=== PATIENT | male | born 1955 | race Caucasian/White ===

== ENCOUNTER 2016-12-24 08:56 | Emergency (ER) | payer OTHER ==
[2016-12-24 09:01] VITALS: BP 126/76; PULSE 96; TEMP 98.3; BMI 24.3
--- NOTE | 2016-12-24 09:17 | PDOC ---
History of Present Illness - General Chief Complaint: Cold Symptoms Stated Complaint: FEVER [id number] Time Seen by Provider: 12/24/16 09:17 - History of Present Illness Initial Comments: 12/24/16 09:41 Chief complaint: Fever and lethargy History of present illness: Patient complains of fevers, primarily at night, up to 102, accompanied by sweats. He also feels lethargic, with lack of energy and decreased appetite. This began approximately one week ago in [place], where he lives. Soon after he traveled here for work. 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 His symptoms have persisted. He was seen at an urgent care center on Thursday, blood work and x-rays of the chest were performed, which were negative. He was begun empirically on doxycycline, which she has been taking since then without relief Review of systems: He denies history of Lyme disease, rash, or tick bite. Denies headache, URI symptoms, sore throat, cough, chest pain, shortness of breath, abdominal pain, nausea, vomiting, diarrhea, visual or focal neurologic symptoms, unsteadiness of gait, lightheadedness, dizziness, vertigo, dysuria, frequency, urgency, hesitancy, hematuria, hematemesis, melena, bloody stool. He has been drinking fluids but his appetite has been poor. There is been no recent travel. He has not been exposed to other people who are ill Past medical history: Ventral hernia repaired several months ago. Pneumonia 2 years ago. Otherwise has always been completely healthy, without other significant medical or surgical problems. He takes no medications other than the recently prescribed antibiotic Social history: Quit smoking several years ago, occasional social alcohol, none recently, no drugs. 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 PERRLA, fundi benign, ENT clear Neck supple without bruit mass or nodes Lungs with full bilateral breath sounds but the suggestion of intermittent rales at the right base with deep inspiration. No dullness to percussion. No egophony. CV S1 and S2 normal without murmur rub or gallop pulses full and symmetric no JVD or edema Abdomen soft nontender without mass or organomegaly. Nondistended. Normal bowel sounds No urethral discharge. Testes descended without mass or tenderness. No genital lesions Neurological C2 to 12 intact. No focal sensory or motor deficits. Gait stable and unimpaired Skin clear, no rash, adequate turgor and wet mucous membranes Extremities without CCE. No posterior calf swelling or tenderness. Impression: Fever, suggestive of occult infection, no specific symptoms other than lethargy and anorexia Plan: Rule out UTI, pneumonia, viral disease. Lyme disease is a possibility but without specific evidence of disease. Obtain records from recent urgent care visit including chest x-ray result. IV fluids. Past History - Past Medical History Allergies/Adverse Reactions: Allergies Allergy/AdvReac Type Severity Reaction Status Date / Time No Known Allergies Allergy Verified 12/24/16 08:57 Home Medications: Ambulatory Orders NK [No Known Home Medication] 12/24/16 Other medical history: DENIES - Surgical History Abdominal Surgery: Yes (HERNIAW MESH) - Psycho/Social/Smoking Cessation Hx Anxiety: No Suicidal Ideation: No Smoking History: Never smoked Hx Alcohol Use: Yes Drug/Substance Use Hx: No Substance Use Type: Alcohol *Physical Exam - Vital Signs Last Vital Signs Temp Pulse Resp BP Pulse Ox 98.3 F 96 H 18 126/76 96 12/24/16 08:57 12/24/16 08:57 12/24/16 08:57 12/24/16 08:57 12/24/16 08:57 ED Treatment Course - LABORATORY CBC & Chemistry Diagram: 12/24/16 09:20 12/24/16 09:20 Medical Decision Making - Medical Decision Making 12/24/16 11:13 White blood count is a little bit low at 3.3, consistent with a viral infection. The differential is normal. Remainder of labs including urinalysis are within normal limits. Urine culture and blood cultures from today are pending. Chest x-ray report and report of labs from the urgent care center several days ago were obtained. They were reviewed. No significant abnormalities There is no murmur or recent dental work which might suggest endocarditis This is probably an obscure viral infection will resolve with time. The patient is advised to continue his antibiotics pending further results of erlichia titers obtained at the urgent care center. To use Tylenol or Motrin to prevent fever and chills, emphasize adequate hydration and nutrition, rest. Return to ER if symptoms worsen or if any additional symptoms develop Patient feels much better after fluids and acetaminophen administered in the emergency room, fully ambulatory and in no pain or other distress upon discharge with family 12/24/16 11:17 *DC/Admit/Observation/Transfer Diagnosis at time of Disposition: Viral syndrome - Discharge Dispostion Disposition: HOME Condition at time of disposition: Improved Admit: No - Patient Instructions Additional Instructions: Return to ER if symptoms worsen, fever spikes higher, or additional symptoms develop Drink plenty of fluids for hydration, get good nutrition, and rest. Continue the antibiotics that were started at the urgent care center, and obtain results from the laboratory work that you received there. Consider seeing an infectious disease specialist if symptoms persist. Use Tylenol or Motrin to control her fever and chills, especially at night.
[2016-12-24 09:29] LABS: PH,URINE 6.5 (4.5-8); URINE APPEARANCE Clear; URINE BILIRUBIN 1+ (NEGATIVE); URINE BLOOD Negative (NEGATIVE); URINE GLUCOSE (UA) Negative (NEGATIVE); URINE KETONE Trace (NEGATIVE); URINE LEUK ESTERASE Negative (NEGATIVE); URINE NITRITE Negative (NEGATIVE); URINE UROBILINOGEN >=8.0 E.U./dl (0.2-1.0)
[2016-12-24 09:30] LABS: URINE COLOR YELLOW; URINE PROTEIN 1+ (NEGATIVE)
[2016-12-24] MEDS ORDERED: ACETAMINOPHEN 1000 MG/100 ML VIAL (NON FORMULARY) IVPB ONE (09:50)
[2016-12-24] MEDS ORDERED: SODIUM CHLORIDE 1,000 ML IV STA (09:50)
[2016-12-24] MEDS ORDERED: ACETAMINOPHEN INJECTION 100 ML IVPB ONE (09:51)
[2016-12-24 09:59] LABS: BASOPHIL 0.3 % (0-2.0); EOSINOPHIL 0.1 % (0-4.5); MCH 30.3 pg (25.7-33.7); MCHC 34.2 g/dl (32.0-35.9); MEAN CELL VOLUME 88.8 fl (80-96); MEAN PLT VOLUME 8.9 fl (7.5-11.1); NEUTROPHILS 61.9 % (42.8-82.8); PLATELET COUNT 185 K/MM3 (134-434); RDW 13.6 % (11.9-15.9); WHITE BLOOD COUNT 3.3 K/mm3 (4.0-10.8)
[2016-12-24 09:59] LABS: URINE RBC 0-2 /hpf (0-3); URINE WBC 0-2 (3-5)
[2016-12-24 10:00] LABS: URINE BACTERIA NONE SEEN /hpf (NEGATIVE)
[2016-12-24 10:52] LABS: ALBUMIN 3.7 g/dl (3.5-5.0); ALK PHOS 74 U/L (32-92); ANION GAP 11 (8-16); BILIRUBIN,TOTAL 0.7 mg/dl (0.2-1.0); CO2 25 mmol/L (22-28); CREATININE 0.9 mg/dl (0.6-1.3); GLUCOSE,RANDOM 123 mg/dl (74-106); SGOT/AST 36 U/L (10-42); SGPT/ALT 37 U/L (10-40); TOT PROT 6.9 g/dl (6.4-8.3)
== END 2016-12-24 11:22 | disposition home or self-care (01) ==
LOC: FER 08:56
PROC: 3E033NZ Introduction of Analgesics, Hypnotics, Sedatives into Peripheral Vein, Percutaneous Approach (ICD-10-PCS; principal; 2016-12-24)
PROC: 3E0337Z Introduction of Electrolytic and Water Balance Substance into Peripheral Vein, Percutaneous Approach (ICD-10-PCS; 2016-12-24)
DX: B34.9 Viral infection, unspecified (principal)
CPT/HCPCS: 36415; 80053; 81003; 81015; 85025; 87040; 87086; 99282-25